=== PATIENT | female | born 1990 | race Asian ===

== ENCOUNTER 2024-05-03 07:32 | Emergency (ER) | payer OTHER ==
[2024-05-03 07:52] VITALS: RESP 18; BMI 23.8
[2024-05-03] MEDS: SODIUM CHLORIDE 0.9% 1000 ML INFUS.BAG IV ONE (08:35)
[2024-05-03 08:53] LABS: HEMATOCRIT 37.8 % (32.4-45.2); HEMOGLOBIN 12.7 G/dL (10.7-15.3); MCH 29.7 pg (25.7-33.7); MCHC 33.7 g/dl (32.0-36.0); MEAN CELL VOLUME 88.1 fl (80-96); PLATELET COUNT 220.4 10^3/uL (134-434); RBC 4.29 10^6/uL (3.60-5.2); RDW 14.1 % (11.6-15.6); WHITE BLOOD COUNT 5.9 10^3/uL (4.0-10.8)
[2024-05-03 09:01] LABS: ALBUMIN 4.3 g/dl (3.4-5.0); ALK PHOS 64 U/L (45-117); ANION GAP 7 mmol/L (4-13); BILIRUBIN,TOTAL 0.3 mg/dl (0.2-1); CALCIUM 8.9 mg/dl (8.5-10.1); CHLORIDE 106 mmol/L (98-107); CO2 26 mmol/L (21-32); CREATININE 0.7 mg/dl (0.6-1.3); GLUCOSE,RANDOM 89 mg/dl (74-106); POTASSIUM 3.9 mmol/L (3.5-5.1); SGOT/AST 17 U/L (15-37); SGPT/ALT 16 U/L (7-52); SODIUM 139 mmol/L (136-145); TOT PROT 6.4 g/dl (6.4-8.2)
[2024-05-03 09:05] LABS: PLATELET ESTIMATE ADEQUATE
[2024-05-03] MEDS ORDERED: LIDO 2%/EPI 1:200000 PRESRVFRE (20 ML SDVIAL) ONE (09:24)
[2024-05-03] MEDS: ACETAMINOPHEN 1000 MG/100 ML BAG IVPB ONE (10:30)
[2024-05-03] MEDS ORDERED: ACETAMINOPHEN INJECTION 100 ML IVPB ONE (10:33)
[2024-05-03] MEDS ORDERED: ceFAZolin SODIUM 1 GM VIAL ONE (10:40)
[2024-05-03] MEDS: CEFAZOLIN 1 GM in DEXTROSE 5%-WATER - 50 ML IVPB ONE (10:47)
[2024-05-03 10:52] VITALS: BP 110/81; PULSE 100; TEMP 101
== END 2024-05-03 11:12 | disposition home or self-care (01) ==
LOC: FER 07:32
PROC: 3E03329 Introduction of Other Anti-infective into Peripheral Vein, Percutaneous Approach (ICD-10-PCS; principal; 2024-05-03)
PROC: 3E033NZ Introduction of Analgesics, Hypnotics, Sedatives into Peripheral Vein, Percutaneous Approach (ICD-10-PCS; 2024-05-03)
DX: S01.511A Laceration without foreign body of lip, initial encounter (principal); R55 Syncope and collapse; R50.9 Fever, unspecified; U07.1 COVID-19; J02.9 Acute pharyngitis, unspecified; X58.XXXA Exposure to other specified factors, initial encounter
CPT/HCPCS: 0241U-QW; 36415; 70450-TC; 71046-TC-FY; 80053; 81003; 81025; 84484; 84703; 85027; 87086; 87651; 93005; 99285-25; J0131